=== PATIENT | female | born 2000 | race Caucasian/White ===

== ENCOUNTER 2021-08-29 07:30 | Emergency (ER) | payer OTHER ==
[~2021-08-29] VITALS: Ht 177.8 cm; Wt 133.8 kg
[2021-08-29 08:21] LABS: BASO % 0.4 % (0.0-1.0); EOS # 0.2 10*3/uL (0.0-0.4); EOS % 1.6 % (1.0-4.0); HEMATOCRIT 37.6 % (37.0-47.0); LYMPH # 2.8 10*3/uL (1.3-4.4); LYMPH % 28.8 % (27.0-41.0); MEAN CELL VOLUME 85.8 fl (81.0-99.0); MEAN CORPUSCULAR HGB 27.2 pg (27.0-31.0); MEAN CORPUSCULAR HGB CONC 31.6 g/dl (33.0-37.0); MEAN PLATELET VOLUME 10.4 fl (9.6-12.3); MONO # 0.7 10*3/uL (0.1-1.0); MONO % 7.3 % (3.0-9.0); NEUT # 5.9 10*3/uL (2.3-7.9); NEUT % 61.6 % (47.0-73.0); PLATELET COUNT AUTOMATED 453 10*3/uL (130-400); RED BLOOD COUNT 4.38 10*6/uL (4.10-5.10); RED CELL DISTRI WIDTH 13.5 % (0-14.5); WHITE BLOOD COUNT 9.6 10*3/uL (4.8-10.8)
[2021-08-29 08:34] LABS: ACT PARTIAL THROMBO TIME 29.1 SECONDS (20.0-32.1)
[2021-08-29 08:37] LABS: ALBUMIN 3.5 gm/dl (3.1-4.5); ALKALINE PHOSPHATASE 78 U/L (45-117); BUN 9 mg/dl (7-24); CHLORIDE 107 mmol/L (98-107); CREATININE 0.69 mg/dL (0.55-1.02); LIPASE 67 U/L (73-393); POTASSIUM 4.2 mmol/L (3.5-5.1); SGOT/AST 12 IU/L (3-35); SGPT/ALT 26 U/L (12-78); SODIUM 139 mmol/L (136-145); TOTAL PROTEIN 7.9 gm/dL (6.4-8.2)
[2021-08-29] MEDS ORDERED: ZOFRAN4 MG PO (09:59)
[2021-08-29] MEDS ORDERED: PRILOSEC20 M1 PO (09:59)
== END 2021-08-29 10:31 | disposition home or self-care (01) ==
LOC: ED 07:30
PROVIDERS: Emergency Medicine
DX: K92.0 Hematemesis (principal); F17.200 Nicotine dependence, unspecified, uncomplicated

== ENCOUNTER 2021-10-22 19:47 | Emergency (ER) | payer OTHER ==
[~2021-10-22] VITALS: Ht 177.8 cm; Wt 140.6 kg
[~2021-10-22 19:47] MED LIST: PRILOSEC20 M1 PO; ZOFRAN4 MG PO
[2021-10-22 20:31] LABS: BASO # 0.1 10*3/uL (0.0-0.1); BASO % 0.4 % (0.0-1.0); EOS # 0.2 10*3/uL (0.0-0.4); EOS % 1.1 % (1.0-4.0); LYMPH # 3.4 10*3/uL (1.3-4.4); LYMPH % 25.4 % (27.0-41.0); MEAN CELL VOLUME 85.1 fl (81.0-99.0); MEAN CORPUSCULAR HGB 26.8 pg (27.0-31.0); MEAN CORPUSCULAR HGB CONC 31.5 g/dl (33.0-37.0); MEAN PLATELET VOLUME 10.2 fl (9.6-12.3); MONO # 0.9 10*3/uL (0.1-1.0); MONO % 6.9 % (3.0-9.0); NEUT # 8.9 10*3/uL (2.3-7.9); NEUT % 65.8 % (47.0-73.0); PLATELET COUNT AUTOMATED 502 10*3/uL (130-400); RED BLOOD COUNT 4.82 10*6/uL (4.10-5.10); RED CELL DISTRI WIDTH 13.5 % (0-14.5); WHITE BLOOD COUNT 13.5 10*3/uL (4.8-10.8)
[2021-10-22 20:48] LABS: ALBUMIN 3.6 gm/dl (3.1-4.5); ALKALINE PHOSPHATASE 92 U/L (45-117); BUN 8 mg/dl (7-24); CHLORIDE 106 mmol/L (98-107); CREATININE 0.73 mg/dL (0.55-1.02); LIPASE 63 U/L (73-393); POTASSIUM 3.6 mmol/L (3.5-5.1); SGOT/AST 11 IU/L (3-35); SGPT/ALT 24 U/L (12-78); SODIUM 139 mmol/L (136-145); TOTAL PROTEIN 8.4 gm/dL (6.4-8.2)
== END 2021-10-23 00:03 | disposition home or self-care (01) ==
LOC: ED 19:47
PROVIDERS: Emergency Medicine
DX: R11.10 Vomiting, unspecified (principal)

== ENCOUNTER 2022-02-25 06:11 | Emergency (ER) | payer OTHER ==
[~2022-02-25] VITALS: Ht 175.2 cm; Wt 140.6 kg
== END 2022-02-25 06:54 | disposition home or self-care (01) ==
LOC: ED 06:11
DX: M79.605 Pain in left leg (principal); R51.9 Headache, unspecified; R11.0 Nausea; V03.99XA Pedestrian with other conveyance injured in collision with car, pick-up truck or van, unspecified whether traffic or nontraffic accident, initial encounter; Y93.89 Activity, other specified; Y92.89 Other specified places as the place of occurrence of the external cause; Y99.8 Other external cause status

== ENCOUNTER 2022-11-10 19:01 | Emergency (ER) | payer OTHER ==
[~2022-11-10] VITALS: Wt 154.2 kg
[2022-11-10 21:35] LABS: BILIRUBIN Negative (Negative); BLOOD Negative (Negative); CLARITY Cloudy (Clear); COLOR Yellow (Yellow); GLUCOSE Negative (Negative); KETONE Negative (Negative); LEUKO ESTERASE Negative (Negative); NITRITE Negative (Negative); PH 5.5 (4.5-8.0); SPECIFIC GRAVITY >= 1.030 (1.001-1.030)
[2022-11-10 21:35] LABS: BASO # 0.1 10*3/uL (0.0-0.1); BASO % 0.4 % (0.0-1.0); EOS # 0.2 10*3/uL (0.0-0.4); EOS % 1.9 % (1.0-4.0); LYMPH # 2.6 10*3/uL (1.3-4.4); LYMPH % 22.8 % (27.0-41.0); MEAN CELL VOLUME 83.7 fl (81.0-99.0); MEAN CORPUSCULAR HGB 26.3 pg (27.0-31.0); MEAN CORPUSCULAR HGB CONC 31.4 g/dl (33.0-37.0); MEAN PLATELET VOLUME 10.3 fl (9.6-12.3); MONO # 1.1 10*3/uL (0.1-1.0); MONO % 9.4 % (3.0-9.0); NEUT # 7.3 10*3/uL (2.3-7.9); NEUT % 65.1 % (47.0-73.0); PLATELET COUNT AUTOMATED 531 10*3/uL (130-400); RED BLOOD COUNT 5.02 10*6/uL (4.10-5.10); RED CELL DISTRI WIDTH 14.4 % (0-14.5); WHITE BLOOD COUNT 11.2 10*3/uL (4.8-10.8)
[2022-11-10 21:42] LABS: BACTERIA TRACE; MUCOUS 2+
[2022-11-10 21:49] LABS: ALKALINE PHOSPHATASE 82 U/L (46-116); BUN 10 mg/dl (9-23); CHLORIDE 100 mmol/L (98-107); SGPT/ALT 18 U/L (10-49); TOTAL PROTEIN 8.2 gm/dL (6.0-8.0)
== END 2022-11-10 22:47 | disposition home or self-care (01) ==
LOC: ED 19:01
PROVIDERS: Physician Assistant
DX: E86.0 Dehydration (principal)

== ENCOUNTER 2023-06-05 14:25 | Emergency (ER) | payer OTHER ==
[2023-06-05 16:31] LABS: BASO # 0.1 10*3/uL (0.0-0.1); BASO % 0.5 % (0.0-1.0); EOS % 0.4 % (1.0-4.0); HEMATOCRIT 39.5 % (37.0-47.0); LYMPH # 2.5 10*3/uL (1.3-4.4); LYMPH % 23.8 % (27.0-41.0); MEAN CORPUSCULAR HGB 26.6 pg (27.0-31.0); MEAN CORPUSCULAR HGB CONC 31.6 g/dl (33.0-37.0); MEAN PLATELET VOLUME 10.1 fl (9.6-12.3); MONO # 0.6 10*3/uL (0.1-1.0); MONO % 5.4 % (3.0-9.0); NEUT # 7.4 10*3/uL (2.3-7.9); NEUT % 69.7 % (47.0-73.0); PLATELET COUNT AUTOMATED 505 10*3/uL (130-400); RED CELL DISTRI WIDTH 14.5 % (0-14.5); WHITE BLOOD COUNT 10.6 10*3/uL (4.8-10.8)
[2023-06-05 16:51] LABS: ALKALINE PHOSPHATASE 78 U/L (46-116); BUN 11 mg/dl (9-23); CHLORIDE 104 mmol/L (98-107); POTASSIUM 4.2 mmol/L (3.4-5.1); SGPT/ALT 20 U/L (10-49); TOTAL PROTEIN 7.9 gm/dL (6.0-8.0)
[2023-06-05] MEDS ORDERED: Motrin,Rufen800 MG PO (17:01)
[2023-06-05] MEDS ORDERED: PENICILLIN-VK500 MG PO (17:01)
== END 2023-06-05 17:20 | disposition home or self-care (01) ==
LOC: ED 14:25
PROVIDERS: Nurse Practitioner Family
DX: K04.7 Periapical abscess without sinus (principal); F41.9 Anxiety disorder, unspecified; R07.89 Other chest pain; R11.0 Nausea; F31.9 Bipolar disorder, unspecified; K21.9 Gastro-esophageal reflux disease without esophagitis; Z87.891 Personal history of nicotine dependence

== ENCOUNTER 2024-01-09 14:49 | Emergency (ER) | payer OTHER ==
[~2024-01-09] VITALS: Ht 177.8 cm; Wt 142.9 kg
[~2024-01-09 14:49] MED LIST changes: +Motrin,Rufen800 MG PO; +PENICILLIN-VK500 MG PO
[2024-01-09] MEDS ORDERED: LAMOTRIGINE25 M1 PO (14:57)
[2024-01-09] MEDS ORDERED: VENLAFAXINE H37.5 M5 PO (14:58)
[2024-01-09] MEDS ORDERED: SODIUM CHLORIDE 0.9% 1,000 ML IV ONE (15:15)
[2024-01-09] MEDS ORDERED: Ondansetron Hydrochloride 4 MG/2 ML VIAL IV ONE (15:20)
[2024-01-09] MEDS ORDERED: Ketorolac Tromethamine 30 MG/ML VIAL IV ONE (15:20)
[2024-01-09 15:42] LABS: BASO % 0.4 % (0.0-1.0); EOS # 0.1 10*3/uL (0.0-0.4); EOS % 1.3 % (1.0-4.0); HEMATOCRIT 40.3 % (37.0-47.0); LYMPH # 2.2 10*3/uL (1.3-4.4); LYMPH % 21.3 % (27.0-41.0); MEAN CELL VOLUME 84.1 fl (81.0-99.0); MEAN CORPUSCULAR HGB 26.3 pg (27.0-31.0); MEAN CORPUSCULAR HGB CONC 31.3 g/dl (33.0-37.0); MEAN PLATELET VOLUME 10.6 fl (9.6-12.3); MONO # 0.7 10*3/uL (0.1-1.0); MONO % 6.4 % (3.0-9.0); NEUT # 7.3 10*3/uL (2.3-7.9); NEUT % 70.4 % (47.0-73.0); PLATELET COUNT AUTOMATED 453 10*3/uL (130-400); RED BLOOD COUNT 4.79 10*6/uL (4.10-5.10); WHITE BLOOD COUNT 10.4 10*3/uL (4.8-10.8)
[2024-01-09 15:59] LABS: ALKALINE PHOSPHATASE 77 U/L (46-116); BUN 6 mg/dl (9-23); CHLORIDE 104 mmol/L (98-107); LIPASE 27 U/L (12-53); POTASSIUM 3.7 mmol/L (3.4-5.1); SGPT/ALT 14 U/L (5-49); TOTAL PROTEIN 7.5 gm/dL (6.0-8.0)
[2024-01-09 16:14] LABS: BETA-HCG, QUANT < 3.0 mIU/mL (3-10)
[2024-01-09 18:10] LABS: BILIRUBIN Negative (Negative); BLOOD Negative (Negative); CLARITY Clear (Clear); COLOR Yellow (Yellow); GLUCOSE Negative (Negative); KETONE Trace (Negative); LEUKO ESTERASE Negative (Negative); NITRITE Negative (Negative); SPECIFIC GRAVITY 1.025 (1.001-1.030)
[2024-01-09 18:19] LABS: BACTERIA 2+; EPITHELIAL CELLS 16-20; MUCOUS 2+
[2024-01-09] MEDS ORDERED: ONDANSETRON4 MG SL (18:27)
== END 2024-01-09 18:30 | disposition home or self-care (01) ==
LOC: ED 14:49
PROVIDERS: Emergency Medicine
DX: R11.2 Nausea with vomiting, unspecified (principal); Z20.822 Contact with and (suspected) exposure to COVID-19; R10.2 Pelvic and perineal pain; R50.9 Fever, unspecified; Z79.899 Other long term (current) drug therapy